=== PATIENT | female | born 1980 | race Caucasian/White ===

== ENCOUNTER 2016-08-17 10:54 | Emergency (ER) | payer MEDICAID ==
[~2016-08-17] VITALS: Ht 154.9 cm; Wt 129.7 kg
[~2016-08-17 10:54] MED LIST: WELLBUTRIN SR100 MG PO
[2016-08-17 11:29] VITALS: BP 151/83
--- NOTE | 2016-08-17 12:41 | NUR ---
PATIENT TO BED 6 AT THIS TIME.
--- NOTE | 2016-08-17 13:00 | NUR ---
35/F presents to ED for evaluation of headache for the past 2 days. Pt describes headache as pressure, to frontal head, non radiating, constant, 9/10. Patient states the headache was a sudden onset. Denies N/V/D. Denies any numbness or tingling. Denies fever or chills. Denies flu like symptoms. Pt states she has been taking Motrin and Tylenol at home with no improvement. Last dose of Motrin was at 0930 this morning. Patient denies dizziness or syncope. Denies dizziness or lightheadedness. Patient is AOX4, clear speech. No visible signs of distress noted. VSS. Hx HTN Pt states she has been off medications for the past 2 months. States her doctor wanted her to diet and exercise.
--- NOTE | 2016-08-17 13:03 | NUR ---
Dr. Mir evaluating patient at bedside.
[2016-08-17] MEDS ORDERED: KETOROLAC 60 MG/2 ML VIAL IM ONE (13:10)
[2016-08-17 14:33] VITALS: BP 101/58
--- NOTE | 2016-08-17 14:35 | NUR ---
Chart checked and completed. The patient's care was reviewed and supervised by Edd Aggarwal RN.
== END 2016-08-17 14:34 | disposition home or self-care (01) ==
LOC: MED 10:54
PROC: 3E033GC Introduction of Other Therapeutic Substance into Peripheral Vein, Percutaneous Approach (ICD-10-PCS; principal; 2016-08-17)
DX: G44.209 Tension-type headache, unspecified, not intractable (principal); R03.0 Elevated blood-pressure reading, without diagnosis of hypertension
CPT/HCPCS: 81025; 96372; 99283; J1885

== ENCOUNTER 2016-10-31 16:04 | Emergency (ER) | payer MEDICAID ==
[~2016-10-31] VITALS: Ht 154.9 cm; Wt 126.6 kg
[2016-10-31 16:25] VITALS: BP 154/87
--- NOTE | 2016-10-31 18:47 | NUR ---
35/F BIB SELF C/O UTI S/SX; URINARY FREQUENCY AND RETENTION X1 WEEK. HX HTN. DENIES N/V/D; SKIN IS PINK/WARM/DRY; AAOX4 WITH EVEN AND STEADY GAIT; LUNGS CLEAR BL; HR EVEN AND REGULAR; PT DENIES ANY FEVER, CP, SOB, OR COUGH AT THIS TIME; PATIENT STATES PAIN OF 8/10 AT THIS TIME; VSS; PATIENT POSITIONED FOR COMFORT; HOB ELEVATED; BEDRAILS UP X2; BED DOWN. ER MD MADE AWARE OF PT STATUS.
--- NOTE | 2016-10-31 18:47 | NUR ---
Dr. Travis evaluating patient in OF.
--- NOTE | 2016-10-31 18:47 | NUR ---
Patient ambulated to OF to be evaluated as fast track by Dr. Travis.
--- NOTE | 2016-10-31 18:48 | NUR ---
Patient transferred to bed 7 for further care. RN evaluating patient at bedside.
[2016-10-31 19:27] VITALS: BP 157/91
== END 2016-10-31 19:27 | disposition home or self-care (01) ==
LOC: MED 16:04
DX: N30.90 Cystitis, unspecified without hematuria (principal); I10 Essential (primary) hypertension; F14.90 Cocaine use, unspecified, uncomplicated

== ENCOUNTER 2017-06-13 14:54 | Emergency (ER) | payer MEDICAID ==
[~2017-06-13] VITALS: Ht 154.9 cm; Wt 122.9 kg
[2017-06-13 14:58] VITALS: BP 140/63
--- NOTE | 2017-06-13 15:01 | NUR ---
PT AA&OX4 WITH EVEN AND STEADY GAIT; PT TO LOBBY AWAITING OPEN BED AT THIS TIME.
--- NOTE | 2017-06-13 15:24 | NUR ---
PATIENT TO OF 3
[2017-06-13 15:50] VITALS: BP 140/63
--- NOTE | 2017-06-13 15:51 | NUR ---
Patient discharged with v/s stable. Written and verbal after care instructions given and explained. Patient verbalized understanding. Ambulatory with steady gait. All questions addressed prior to discharge. Advised to follow up with PMD.
== END 2017-06-13 15:51 | disposition home or self-care (01) ==
LOC: MED 14:54
DX: R00.2 Palpitations (principal); I10 Essential (primary) hypertension
CPT/HCPCS: 93005; 99283

== ENCOUNTER 2017-09-06 08:10 | Emergency (ER) | payer MEDICAID ==
[~2017-09-06] VITALS: Ht 165.1 cm; Wt 99.8 kg
--- NOTE | 2017-09-06 08:12 | NUR ---
PT BIBA FOR GENERAL WEAKNESS TO BED 10
[2017-09-06 08:17] VITALS: BP 139/100
--- NOTE | 2017-09-06 08:17 | NUR ---
PT MOVED TO BED 12
--- NOTE | 2017-09-06 08:19 | NUR ---
AAO PT BEING EVALUATED BY DR WOOD
--- NOTE | 2017-09-06 08:21 | NUR ---
PATIENT PRESENTS TO ED WITH PT JARED FROM WORK FOR SUDDEN DIZZINESS/NEAR SYNCOPE THIS AM. DENIES HEADACHE, DENIES VISUAL DISTURBANCES. VERBALIZES FAMILY STRESS LATELY. DENIES CP/SOB MED HX: ANXIETY, DEPRESSION RX: ATIVAN, WELLBUTRIN; DENIES N/V/D; SKIN IS PINK/WARM/DRY; AAOX4 WITH EVEN AND STEADY GAIT; LUNGS CLEAR BL; HR EVEN AND REGULAR; PT DENIES ANY FEVER, CP, SOB, OR COUGH AT THIS TIME; PATIENT STATES PAIN OF 2/10 AT THIS TIME; VSS; PATIENT POSITIONED FOR COMFORT; HOB ELEVATED; BEDRAILS UP X2; BED DOWN. ER MD MADE AWARE OF PT STATUS.
[2017-09-06 09:29] VITALS: BP 128/60
--- NOTE | 2017-09-06 09:29 | NUR ---
Patient discharged with v/s stable. Written and verbal after care instructions given and explained. Patient verbalized understanding. Wheel Chair Assisted to the lobby while waiting for pt's mother. All questions addressed prior to discharge. Advised to follow up with PMD.
== END 2017-09-06 09:29 | disposition home or self-care (01) ==
LOC: MED 08:10
DX: R42 Dizziness and giddiness (principal); F41.9 Anxiety disorder, unspecified; I10 Essential (primary) hypertension; F32.9 Major depressive disorder, single episode, unspecified
CPT/HCPCS: 81025; 93005; 99283